=== PATIENT | male | born 1955 | race Caucasian/White ===

== ENCOUNTER 2019-04-16 11:58 | Observation (INO) ==
[2019-04-16] MEDS ORDERED: SODIUM CHLORIDE 0.9% INJ SCH (14:30)
--- NOTE | 2019-04-16 16:45 | EKG Report ---
Test Performed on : 04/16/2019 4:39:01 PM Test Reason : chest pain Blood Pressure : / mmHG Vent. Rate : 063 BPM Atrial Rate : 063 BPM P-R Int : 162 ms QRS Dur : 092 ms QT Int : 382 ms P-R-T Axes : 055 006 030 degrees QTc Int : 390 ms Normal sinus rhythm. Cannot rule out Anterior infarct , age undetermined Abnormal ECG No previous ECGs available Confirmed by Kim CAMPBELL, Bruce Mccray ([id number]) on 04/17/2019 7:46:34 AM
[2019-04-16] MEDS: PROTONIX IV SCH (18:17)
[2019-04-16] MEDS ORDERED: MORPHINE IV PRN (18:32)
[2019-04-16] MEDS ORDERED: NITROGLYCERIN SL PRN (18:32)
[2019-04-16] MEDS ORDERED: FLU VACCINE IM ONE (18:36)
--- NOTE | 2019-04-16 19:30 | Diag Imaging Result Doc PS360 ---
EXAM: CHEST-2 VIEWS INDICATION: SOB TECHNIQUE: 2 views COMPARISON: None. FINDINGS: The lungs are grossly clear. There is no discrete pleural fluid collection or pneumothorax. The cardiomediastinal silhouette and central vasculature are grossly unremarkable. IMPRESSION: No evidence of acute pathology by plain radiograph. Electronically signed by Delvis Stewart 04/16/2019 7:28 PM
[2019-04-16 19:37] LABS: BASO# 0.05 X1000 (0.0-0.2); BASO% 0.6 % (0.0-0.8); EOS# 0.11 X1000 (0.0-0.7); EOS% 1.2 % (0.0-10.0); HEMOGLOBIN 15.4 g/dL (14.0-18.0); LYMPH# 3.25 X1000 (1.2-3.4); LYMPH% 36.7 % (20.5-51.1); MCH 30.1 PG (27-31); MCHC 34.2 g/dL (33-37); MCV 88.1 FL (81-99); MONO# 0.65 X1000 (0.11-0.59); MONO% 7.3 % (1.7-9.3); NEUT# 4.79 X1000 (1.4-6.5); NEUT% 54.2 % (42.2-75.2); PLT 263 X1000 (130-400); RBC 5.11 XMIL (4.7-6.1); RDW 13.2 % (11.5-14.5); WBC 8.85 X1000 (4.8-10.8)
[2019-04-16 19:45] LABS: ALB/GLOB RATIO 1.9; CALCIUM 9.4 mg/dL (8.8-10.2); CREATININE 1.4 mg/dL (0.7-1.2); POTASSIUM 3.8 mmol/L (3.5-5.1); TOTAL BILIRUBIN 0.39 mg/dL (0.20-1.00); TOTAL PROTEIN 6.1 g/dL (6.3-8.3)
[2019-04-16 20:09] LABS: CK INDEX 1.3 (0.0-2.5); CK-MB 3.3 ng/mL (0.0-5.0)
--- NOTE | 2019-04-16 22:04 | CONSULTATION ---
DATE OF CONSULTATION: 04/16/2019 IMPRESSION: 1. Recurrent throat burning and left arm discomfort, possibly angina. 2. Status post previous myocardial infarction in the past, more than 30 years ago, treated with thrombolytic therapy, after which patient did not require any angioplasty or stents. 3. Hypertension. 4. Hyperlipidemia. 5. Obstructive sleep apnea. RECOMMENDATIONS: Further evaluation for underlying coronary disease needed given clinical presentation. Stress myocardial perfusion imaging versus cardiac catheterization considered. Given that patient has prior history of previous myocardial infarction and also works as a shuttle truck driver, invasive evaluation with coronary angiography would appear to be the best option. The rationale for this was discussed with the patient and he very much wished to proceed with cardiac catheterization study. HISTORY: This 63-year-old, white male, with past history of previous myocardial infarction, hypertension, hyperlipidemia, and obstructive sleep apnea, was admitted to pursue further evaluation of recurrent episodes of burning in the throat and left arm discomfort. Symptoms have been nonexertional and of limited duration. Symptoms tend to occur at night. He has had some degenerative disease of the neck and he believes symptoms might possibly be related to that. He has history of previous myocardial infarction more than 30 years ago, and describe symptoms of epigastric discomfort, nausea, and vomiting with that. When he suffered myocardial infarction 30 years ago, he was treated with thrombolytic therapy and transported to [facility]. He had coronary angiography there, but did not require coronary angioplasty or stenting. PAST MEDICAL HISTORY: 1. Previous myocardial infarction more than 30 years ago. 2. Hypertension. 3. Hyperlipidemia. 4. Obstructive sleep apnea. ALLERGIES: He has no known drug allergies. MEDICATIONS PRIOR TO ADMISSION: As listed. SOCIAL HISTORY: He is . He works as a shuttle truck driver. He has history of previous smoking in the past, but no longer smokes. FAMILY HISTORY: Positive for coronary disease. REVIEW OF SYSTEMS: Pulmonary: Negative. Gastrointestinal: Negative. Constitutional: Negative. Remaining review of systems negative/noncontributory with 14-total systems reviewed. PHYSICAL EXAMINATION: A pleasant, overweight, middle-aged male in no distress, on room air.Vital signs: Blood pressure 130/80, heart rate 60 and regular, oxygen saturation 98%. HEENT: Extraocular movements appear intact. Mucous membranes are moist. Neck: Supple without jugular venous distention. There are no carotid bruits. Chest: Clear to auscultation. Cardiac: Regular rate and rhythm without appreciable murmur or gallop. Abdomen: Soft. Bowel sounds are normal. Extremities: Without edema. Neurologic: Alert and fully oriented. Speech is fluent. He moves all 4 extremities equally well. Skin: Warm and dry. Psychiatric: Reveals his mood to be appropriate. DIAGNOSTIC DATA: A 12-lead EKG demonstrates normal sinus rhythm and delayed precordial R-wave progression. LABORATORY DATA: Pending. cc: MD Reji Gonzalez MD
--- NOTE | 2019-04-16 22:30 | HISTORY AND PHYSICAL ---
CHIEF COMPLAINT: Chest pain radiating to the neck and the left shoulder for the last 1 month off and on. HISTORY OF PRESENT ILLNESS: He is a 63-year-old white gentleman. Basically he came my office yesterday with chest pain going to the neck and the left arm for the last couple of weeks. The pain is not related to exertion. He has known history of coronary artery disease. He was a former patient of Dr. Chapman. He did a stress test in 07/2017. It was read by Dr. Jacob. He had fixed defects, inferior apex; hypokinesis noted; ejection fraction reported 44%. In light of low ejection fraction and previous existing heart disease, I spoke to Dr. Jacob. He wants him to be admitted and to do left heart catheterization. EKG nondiagnostic. He was admitted in the PC unit, and Dr. Jacob was consulted for catheterization in the morning. PAST MEDICAL HISTORY: 1. CAD, status post tPA in 1987; details are not known, in [facility]. 2. Metabolic syndrome. 3. Hyperlipidemia. 4. Hypertension. 5. Tubulovillous adenoma in sigmoid colon by Dr. Ring. 6. Tennis elbow on the left side. 7. Sleep apnea. 8. Acid reflux disease. PAST SURGICAL HISTORY: None reported. MEDICATIONS: In my office, aspirin 81 mg daily, Lipitor 80 daily, enalapril/hydrochlorothiazide 10/25 p.o. b.i.d., metoprolol 50 one tablet b.i.d. ALLERGIES: Amoxicillin, codeine, Fioricet. SOCIAL HISTORY: , lives in [place]. No smoking, no drug abuse, no alcohol abuse. 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 FAMILY HISTORY: Father of stomach cancer at the age of 51. Mom of liver cancer at the age of 58. Siblings have significant diabetes. HEALTH MAINTENANCE: Flu vaccine in 2019. Last colonoscopy in [address] Ring. Last digital exam 10/2018. REVIEW OF SYSTEMS: HEENT: No headache, no vision problem. Slight deafness. No sore throat. Neck: No neck pain. No goiter. No lymphadenopathy. No bruit. Cardiopulmonary: Chest pain radiating to the neck and the left shoulder, relieved with rest. No shortness of breath, PND or orthopnea. No swelling of feet. Gastrointestinal: History of acid reflux symptoms. No altered bowel habits. No bleeding per rectum. Genitourinary: No history of hesitancy, frequency or dysuria. Complains of left arm pain. No weakness. Neurological: No focal symptoms. PHYSICAL EXAMINATION: VITAL SIGNS: Temperature is 98.1 degrees, pulse 60, blood pressure is 130/80. Five feet 11 inches, 244 pounds. HEENT: Atraumatic, normocephalic. Pupils equal, react to light. TMs are normal. Nose and throat within normal limits. NECK: Supple. No lymphadenopathy. No goiter. JVD is not elevated. CHEST: Bilateral air entry. HEART: Sounds are regular. No murmurs. ABDOMEN: Belly is soft, nontender. Obese. Good bowel sounds. RECTAL: Deferred. EXTREMITIES: No peripheral edema or cyanosis. NEUROLOGIC: No obvious neurological deficits. LABORATORY DATA: CBC: White cell count 8.8, hematocrit 45, platelets 263,000. Sodium 131, potassium 3.8, chloride 100, BUN 19, creatinine 1.4, glucose 159, calcium 9.4. CK is 256. Troponin was negative. ProBNP 110. DIAGNOSTIC DATA: Chest x-ray: No acute evidence. EKG: Normal sinus, nothing acute. ASSESSMENT AND PLAN: 1. A 63-year-old white gentleman with known history of existing heart disease, status post tissue plasminogen activator in 1987. Abnormal scan with a fixed defect in the inferior wall. Ejection fraction 40% with chest pain, new onset. Admitted to the hospital for left heart catheterization. Consult with Dr. Britt transportation department supervisor, set up left heart catheterization in the morning. 2. We will check the echocardiography, lipid profile. Continue aspirin, nitroglycerin, intravenous Protonix. 3. Reconcile his home medications. 4. Creatinine 1.4. In light of catheterization, we will give gentle intravenous fluids. 5. Discussed the plan of care with family. Based on catheterization, further recommendations will be followed. cc: Reji Hunter MD
[2019-04-16] MEDS: NS 1,000 ML IV SCH (22:33)
[2019-04-17 06:02] LABS: CHOLESTEROL 108 mg/dL (0-200); HDL 32 mg/dL (35-55); LDL 44 mg/dL; TRIGLYCERIDES 158 mg/dL (39-160); VLDL 32 mg/dL
[2019-04-17 07:37] LABS: BASO# 0.04 X1000 (0.0-0.2); BASO% 0.4 % (0.0-0.8); EOS# 0.15 X1000 (0.0-0.7); EOS% 1.6 % (0.0-10.0); HEMATOCRIT 46.2 % (42.0-52.0); HEMOGLOBIN 15.6 g/dL (14.0-18.0); LYMPH# 3.55 X1000 (1.2-3.4); LYMPH% 37.2 % (20.5-51.1); MCH 30.2 PG (27-31); MCHC 33.8 g/dL (33-37); MCV 89.5 FL (81-99); MONO# 0.72 X1000 (0.11-0.59); MONO% 7.5 % (1.7-9.3); MPV 8.9 FL (7.4-10.4); NEUT# 5.08 X1000 (1.4-6.5); NEUT% 53.3 % (42.2-75.2); PLT 247 X1000 (130-400); RBC 5.16 XMIL (4.7-6.1); RDW 13.4 % (11.5-14.5); WBC 9.54 X1000 (4.8-10.8)
[2019-04-17 07:44] LABS: INR 1.07
[2019-04-17 07:45] LABS: PTT 27.9 Seconds (22.3-41.8)
[2019-04-17 07:59] LABS: ALB/GLOB RATIO 1.7; ALBUMIN 3.8 g/dL (3.5-5.0); CALCIUM 8.8 mg/dL (8.8-10.2); CREATININE 1.3 mg/dL (0.7-1.2); MAGNESIUM 1.4 mg/dL (1.5-2.7); POTASSIUM 4.1 mmol/L (3.5-5.1); TOTAL BILIRUBIN 0.44 mg/dL (0.20-1.00); TOTAL PROTEIN 6.1 g/dL (6.3-8.3)
[2019-04-17] MEDS ORDERED: LOPRESSOR PO SCH (09:00)
[2019-04-17] MEDS ORDERED: ASPIRIN PO SCH (09:00)
[2019-04-17] MEDS ORDERED: HEPARIN 1000 UNITS/NS 2,000 UNIT/1,000 ML IV.SOLN ONE (09:59)
[2019-04-17] MEDS ORDERED: XYLOCAINE 1% ONE (10:08)
[2019-04-17] MEDS: NS 1,000 ML IV SCH (10:13)
[2019-04-17] MEDS ORDERED: VERSED ONE (10:47)
[2019-04-17] MEDS ORDERED: DILAUDID ONE (10:47)
--- NOTE | 2019-04-17 11:44 | CARDIAC CATH REPORT ---
PROCEDURE NAME: - INDICATION FOR PROCEDURE: Unstable angina. PROCEDURES PERFORMED: 1. Left heart catheterization. 2. Selective coronary angiography. 3. Left ventriculogram. PROCEDURE IN DETAIL: Mr. Bazzi was brought to the catheterization laboratory in a fasting state. Informed consent was obtained. Prepped in the usual fashion. He was anesthetized over the right radial artery, and after Jose Carlos's test proved adequate, a 5-Moldovan sheath was placed via true Seldinger technique. Radial cocktail was administered. Catheters were introduced. Hemodynamic measurements were made in the ascending thoracic aorta. Coronary angiography was performed in multiple views using JL-3.5 and JR-4 diagnostic catheters. Left heart catheterization and left ventriculogram were performed using the JR-4. At the conclusion of the procedure, all sheaths and catheters were removed. TR band was left inflated at 9 mL of air. Good capillary refill. Good hemostasis. 75 mL of IV contrast, and 5 to 10 mL of blood loss. FINDINGS: 1. The left main appears normal, originates from the left coronary cusp. 2. Left anterior descending originates from the left main, and appears normal. 3. Circumflex originates from the left main. There is a 40% proximal lesion, midvessel 30% lesion. The majority of the circulation from the OM is two obtuse marginal branches. At the continuation of the AV circumflex, after the second obtuse marginal, there is an extremely small vessel, less than 2 mm, possible 40% to 50% disease in this location. 4. Right coronary originates from the right coronary cusp. It is dominant. The proximal vessel appears normal. Mid vessel has 20% to 30% lesion. PDA appears normal. 5. Aortic blood pressure 111/71, with a mean of 90. Left ventricle pressure 112, with an LVEDP of 16. 6. Left ventriculogram demonstrates an EF of 55% to 60% with normal wall motion. IMPRESSION: Mr. Bazzi is a 63-year-old gentleman with a previous history of myocardial infarction. PLAN: He does not appear to have any significant flow-limiting lesions. I would recommend continued aggressive secondary risk factor modification. Findings of this test were relayed to the primary Cardiology team taking care of the patient. cc: MD Reji George MD
[2019-04-17] MEDS: PROTONIX IV SCH (13:50)
--- NOTE | 2019-04-17 13:50 | PROGRESS NOTE ---
DATE: 04/17/2019 SUBJECTIVE: Patient had cardiac catheterization/coronary angiography this morning which demonstrated moderate stenosis an mid to distal left circumflex coronary artery where the vessel is a relatively smaller vessel. There is mild coronary atherosclerosis in other regions. Left ventricular ejection fraction at least 55%. He continues without chest discomfort or neck discomfort. OBJECTIVE: Vital signs: Blood pressure 151/80, heart rate 58, oxygen saturation 98% on room air. There is no significant jugular venous distention. Chest: Clear to auscultation. Cardiac: Reveals a regular rate and rhythm without appreciable murmur or gallop. There is no evidence of peripheral edema. LABORATORY DATA: Includes triglycerides 158, total cholesterol 108, LDL cholesterol 44, HDL cholesterol 32. Echocardiography reviewed. There is suggestion of small apical wall motion abnormality. Left ventricle ejection fraction is normal. IMPRESSION: 1. Recurrent neck and left arm discomfort. Given limited coronary obstructive lesions, I suspect his current symptoms may more likely be related to musculoskeletal etiology or cervical spine disease. 2. Atherosclerotic coronary artery disease with moderate stenosis in continuation of left circumflex coronary which is relatively small caliber, along with mild coronary atherosclerosis in other regions. Left ventricular ejection fraction normal. 3. Previous myocardial infarction. Echocardiography suggests small apical wall motion abnormality and perhaps this is the location of his previous infarct several years ago. 4. Hypertension. 5. Hyperlipidemia. 6. Obstructive sleep apnea. RECOMMENDATIONS: 1. Medical management of patient's coronary atherosclerosis. 2. Consider alternative etiologies for patient's neck and arm symptoms. 3. Repeat limited echocardiography with echo contrast to further define what appears to be a small apical wall motion abnormality. 4. Reasonable for patient to be discharged to home later today. cc: MD Reji Gonzalez MD
[2019-04-17 16:54] VITALS: BP 138/87
[2019-04-17] MEDS ORDERED: FLU VACCINE IM ONE (19:48)
[2019-04-17] MEDS ORDERED: LIPITOR PO SCH (21:00)
[2019-04-17] MEDS ORDERED: ZETIA PO SCH (21:00)
--- NOTE | 2019-04-17 23:36 | ECHO REPORT ---
ORDER DATE: 04/16/2019 INTERPRETING PHYSICIAN: Adarsh Beaulieu MD ECHOCARDIOGRAPHIC MEASUREMENTS: 1. Interventricular septum 1.0 cm. 2. Left ventricular posterior wall 1.0 cm. 3. Diastolic diameter 5.3 cm. 4. Left atrium 4.6 cm. 5. Aorta 3.3 cm. SUMMARY OF TWO-DIMENSIONAL IMAGIN. Aortic valve leaflets are trileaflet. 2. Technically suboptimal study. Poor acoustic window. 3. Mitral valve was normal. 4. Tricuspid valve was normal. 5. There is mild mitral regurgitation. Doppler studies reveal: 1. Peak velocity across the aortic valve less than 2 m/sec. There is no aortic stenosis or regurgitation. 2. Right ventricle not well visualized. 3. There is mild tricuspid regurgitation. Peak velocity across the tricuspid valve less than 2 m/sec. 4. Normal left ventricular cavity size. Estimated ejection fraction of 55% to 60%. 5. There is apical hypokinesis. Would recommend Optison scan to rule out apical thrombus, as this area was not well visualized. 6. There is no pericardial effusion. cc: MD Reji Ordonez MD
--- NOTE | 2019-04-18 14:57 | DISCHARGE SUMMARY ---
ADMISSION DATE: 04/16/2019 DISCHARGE DATE: 04/17/2019 DISCHARGING DIAGNOSES: 1. Chest pain. 2. Poor R-wave progression on the EKG. 3. Previous history of angioplasty. 4. Left heart catheterization, no flow limiting lesions noted. Findings are LAD, left main were normal. Circumflex 40% proximal, 30% midvessel. Right coronary artery, 20 to 30%. Obtuse 2nd marginal 40 to 50%, EF 55 to 60%. SECONDARY DIAGNOSES: 1. Metabolic syndrome. 2. Hyperlipidemia. 3. Hypertension. 4. Tubulovillous adenoma in the sigmoid colon by Dr. Ring. 5. Sleep apnea on CPAP machine. 6. Acid reflux disease. 7. Reactive depression. CONSULTS: Dr. Britt. PROCEDURES: Left heart catheterization by Dr. Jacob with above findings. BRIEF HISTORY: Please see the H P that was done on 04/16/2019. In brief, he is a 63-year-old white gentleman with above problems came in with chest pain going to the neck and the left arm with remote history of [facility] with tPA in [place] 1987. The patient of Dr. Jacob was admitted to the hospital for evaluation of coronary anatomy. He had a stress test that was done in Med/Surg 2018, which is fixed defects with EF 44%. He has a poor R-wave progression. Hospital course was pain-free except the one episode. LABS: CBC: White cell count 9.5, hematocrit 46, platelets 247,000, PT/INR is normal. SMA 7: Sodium 139, potassium 4.1, BUN 19, creatinine 1.3, glucose 128. Cardiac enzymes and proBNP were normal. Total protein 6.1, triglycerides 158, cholesterol 108, HDL 32. Chest x-ray no evidence of acute pathology. Left heart catheterization showed no flow-limiting lesions, relegated to medical management. PLAN OF CARE: As follows: 1. Enalapril hydrochlorothiazide 10/25 daily. 2. Zetia 10 daily. 3. Metoprolol 50 p.o. b.i.d. 4. Lipitor 80 daily. 5. Prilosec 40 daily. 6. Zoloft 50 at bedtime. 7. Aspirin 81 mg daily. 8. We will do outpatient noncardiac workup which includes evaluation of C-spine pathology and will follow up in my office next week. cc: Reji Hunter MD
== END 2019-04-17 20:17 | disposition home or self-care (01) ==
LOC: INTOOBSV 11:58 → DIRADM 11:58 → 2N 16:13
PROVIDERS: ADMIT Internal Medicine; ATTEND Internal Medicine